=== PATIENT | male | born 1950 | race Caucasian/White ===

== ENCOUNTER 2020-01-26 15:34 | Emergency (ER) | payer OTHER, BC ==
--- NOTE | 2020-01-26 15:39 | PDOC ---
Rapid Medical Evaluation Time Seen by Provider: 01/26/20 15:36 Medical Evaluation: Allergies Allergy/AdvReac Type Severity Reaction Status Date / Time No Known Allergies Allergy Verified 01/26/20 15:36 01/26/20 15:36 69 year old male pmhx HTN HLD presenting with LLQ pain x 1 day. NB in stool Sent by urgent care PE: TTP LLQ Plan Labs UA Imaging differed to ED provider Pt to precede to the ED for further care
[2020-01-26 15:40] VITALS: TEMP 98.1; BMI 26.1
--- OUTSIDE RECORDS SUMMARY | 2020-01-26 16:08 | XMS ---
:1950 Author Organization [facility] Care Team Providers Name Role Phone MD ANDRE Unavailable Unavailable COURT Unavailable Unavailable Re-disclosure Warning The records that you are about to access may contain information from federally- assisted alcohol or drug abuse programs. If such information is present, then the following federally mandated warning applies: This information has been disclosed to you from records protected by federal confidentiality rules (42 CFR part 2). The federal rules prohibit you from making any further disclosure of this information unless further disclosure is expressly permitted by the written consent of the person to whom it pertains or as otherwise permitted by 42 CFR part 2. A general authorization for the release of medical or other information is NOT sufficient for this purpose. The Federal rules restrict any use of the information to criminally investigate or prosecute any alcohol or drug abuse patient.The records that you are about to access may contain highly sensitive health information, the redisclosure of which is protected by Article 27-F of the [facility] Public Health law. If you continue you may haveaccess to information: Regarding HIV / AIDS; Provided by facilities licensed or operated by the [facility] Office of Mental Health; or Provided by the [facility] Office for People With Developmental Disabilities. If such information is present, then the following [facility] mandated warning applies: This information has been disclosed to you from confidential records which are protected by state law. State law prohibits you from making any further disclosure of this information without the specific written consent of the person to whom it pertains, or as otherwise permitted by law. Any unauthorized further disclosure in violation of state law may result in a fine or fpc sentence or both. A general authorization for the release of medical or other information is NOT sufficient authorization for further disclosure. Encounters Encounter Providers Location Date Indications Data Source(s ) Outpatient Attender: MIAH ELAM 01/09/2019 Jeffry Zhongitter: JUDY 09:18:00 AM [facility] EDT - 01/09/2019 12:03:00 PM EDT Patient discharged. Insurance Providers Payer name Policy type Policy ID Covered Covered democrat's Policy P john / Coverage democrat ID relationship to [employer] Inf ormation type vill[employer] O [id number] MEDICARE [id number] Self [id number] SELF PAY 0 Self [id number] [id number] Self [id number]
[2020-01-26] MEDS ORDERED: ACETAMINOPHEN 1000 MG/100 ML VIAL (NON FORMULARY) IVPB ONE (16:19)
--- NOTE | 2020-01-26 16:19 | PDOC ---
History of Present Illness - General Chief Complaint: Pain Stated Complaint: PAIN Time Seen by Provider: 01/26/20 15:36 History Source: Patient - History of Present Illness Timing/Duration: reports: constant Quality: reports: moderate Abdominal Pain Onset Location: reports: LLQ, flank Past History - Medical History Allergies/Adverse Reactions: Allergies Allergy/AdvReac Type Severity Reaction Status Date / Time No Known Allergies Allergy Verified 01/26/20 15:36 Home Medications: Ambulatory Orders Amlodipine Besylate [Norvasc] 10 mg PO DAILY 11/14/12 Aspirin [ASA] 81 mg PO DAILY 11/14/12 Fluticasone Prop 0.05% Nasal [Flonase] 1 - 2 spray NS HS 11/14/12 Losartan Potassium 50 mg PO DAILY 11/14/12 Meloxicam [Mobic] 7.5 mg PO DAILY 11/14/12 Multivitamin [Multivitamins] PO DAILY 11/14/12 Ondansetron HCl [Zofran] 4 mg PO TID PRN #14 tablet 01/26/20 Oxycodone HCl/Acetaminophen [Percocet 5-325 mg Tablet] 1 tab PO Q6H PRN #10 tablet MDD 4 01/26/20 Tamsulosin HCl [Flomax] 0.4 mg PO DAILY #7 cap.er.24h 01/26/20 Anemia: No Asthma: No Cancer: No Cardiac Disorders: No CVA: No COPD: No CHF: No Dementia: No Diabetes: No GI Disorders: No Disorders: No HTN: Yes Hypercholesterolemia: No Liver Disease: No Seizures: No Thyroid Disease: No - Surgical History Abdominal Surgery: No Appendectomy: No Cardiac Surgery: No Cholecystectomy: No Lung Surgery: No Neurologic Surgery: No Orthopedic Surgery: Yes (FX JAW WIRED) - Psycho-Social/Smoking History Smoking History: Never smoked Have you smoked in the past 12 months: Yes Number of Cigarettes Smoked Daily: 0 Cigars Per Day: 1 - Substance Abuse Hx (Audit-C & DAST Scrn) How often the patient has a drink containing alcohol: Monthly or less Number of drinks the patient has on a typical day: 1 or 2 How often the patient has six or more drinks on one occasion: Never Score: In Men: 4 or > Positive; In Women: 3 or > Positive: 1 Screen Result (Pos requires Nsg. Audit-10AR): Negative In the last yr the pt used illegal drug/Rx for NonMed reason: No Score: Yes response is considered Positive: 0 Screen Result (Positive result requires Nsg. DAST-10): Negative Review of Systems - Review of Systems Constitutional: No: Chills, Fever ABD/GI: Yes: Nausea. No: Blood Streaked Bowels, Constipated, Diarrhea, Vomiting, Tarry Stools : Yes: Flank Pain. No: Burning, Dysuria, Discharge, Hematuria *Physical Exam - Vital Signs Last Vital Signs Temp Pulse Resp BP Pulse Ox 98.1 F 66 16 163/88 97 01/26/20 15:36 01/26/20 15:36 01/26/20 15:36 01/26/20 15:36 01/26/20 15:36 - Physical Exam General Appearance: Yes: Appropriately Dressed. No: Apparent Distress HEENT: positive: Normal Voice Neck: positive: Supple Respiratory/Chest: negative: Respiratory Distress Gastrointestinal/Abdominal: positive: Normal Bowel Sounds, Soft. negative: Tender, Distended, Guarding, Rebound Musculoskeletal: negative: CVA Tenderness Integumentary: positive: Dry, Warm Neurologic: positive: Fully Oriented, Alert, Normal Mood/Affect ED Treatment Course - LABORATORY CBC & Chemistry Diagram: 01/26/20 16:00 01/26/20 16:00 Medical Decision Making - Medical Decision Making 01/26/20 16:31 69-year-old male with history of HTN, HLD, uncomplicated renal stones remotely here with L flank pain since yesterday associated with mild nausea, no vomiting, dysuria, hematuria, fever or chills see exam Recurrent renal colic vs diverticulitis, unlikely uti/pyelo Exam unremarkable -pain control -labs -CT 01/26/20 17:28 Per radiology, unable to administer IV contrast 2/2 cr of 1.4, will do dry CT instead 01/26/20 18:41 CT read as 4 mm left UVJ stone with mild to moderate hydro-. Labs unremarkable except for creatinine of 1.4, no old to compare. Patient denies any known history of kidney disease. States pain improving with 2 mg of morphine. IV fluid in progress. Anticipate discharge with appropriate meds, strainer and urology follow-up 01/26/20 19:00 Signed out to HAYLEE Whitten at this time Discharge - Discharge Information Problems reviewed: Yes Clinical Impression/Diagnosis: Renal stone Condition: Improved Disposition: HOME - Additional Discharge Information Prescriptions: Tamsulosin HCl [Flomax] 0.4 mg PO DAILY #7 cap.er.24h Oxycodone HCl/Acetaminophen [Percocet 5-325 mg Tablet] 1 tab PO Q6H PRN #10 tablet MDD 4 PRN Reason: Pain Ondansetron HCl [Zofran] 4 mg PO TID PRN #14 tablet PRN Reason: Nausea - Follow up/Referral Referrals: Donavon Sosa MD [Staff Physician] - Call tomorrow Solo Astorga MD., MD [Staff Physician] - - Patient Discharge Instructions Patient Printed Discharge Instructions: Kidney Stones -- Adult Additional Instructions: You have a 4 mm left-sided kidney stone that is right on top of the bladder. Once stone makes its way into the bladder, symptoms will resolve. strain the urine In the meantime take Flomax, drink fluids and take percocet for pain as needed drink plenty of fluids Return to the ER for any worsening of symptoms, otherwise you were given a strainer in an attempt to collect urine at home. Please follow-up with urology as soon as possible. - Post Discharge Activity Work/Back to School Note: Back to Work
[2020-01-26] MEDS ORDERED: ACETAMINOPHEN INJECTION 100 ML IVPB ONE (16:22)
[2020-01-26 16:33] LABS: BASO % 0.8 % (0-2.0); EOS % 0.6 % (0-4.5); HEMOGLOBIN 16.1 GM/dL (11.7-16.9); LYMPH % 9.5 % (8-40); MCH 33.3 pg (25.7-33.7); MEAN CELL VOLUME 95.1 fl (80-96); NEUT % 81.1 % (42.8-82.8); PLATELET COUNT 260 K/MM3 (134-434); RBC 4.83 M/mm3 (4.00-5.60); RDW 12.6 % (11.9-15.9)
[2020-01-26 17:05] LABS: BLOOD UREA NITROGEN 31.8 mg/dL (7-18); CREATININE 1.4 mg/dL (0.55-1.3); POTASSIUM 4.2 mmol/L (3.5-5.1)
[2020-01-26 17:06] LABS: BILIRUBIN,TOTAL 0.6 mg/dL (0.2-1); CALCIUM 9.7 mg/dL (8.5-10.1); TOT PROT 7.8 g/dl (6.4-8.2)
[2020-01-26] MEDS ORDERED: SODIUM CHLORIDE 1,000 ML IV STA ×2 (17:49→19:46)
[2020-01-26 18:01] LABS: EPI CELLS 2 /uL (0-25.1); HYALINE CASTS 0 /uL (0-3.1); URINE APPEARANCE CLEAR; URINE BACTERIA 11 /uL (0-1359); URINE BILIRUBIN NEGATIVE (NEGATIVE); URINE COLOR YELLOW; URINE GLUCOSE (UA) NEGATIVE (NEGATIVE); URINE KETONE NEGATIVE (NEGATIVE); URINE LEUK ESTERASE NEGATIVE (NEGATIVE); URINE NITRITE NEGATIVE (NEGATIVE); URINE PROTEIN NEGATIVE (NEGATIVE); URINE RBC 47 /uL (0-23.9); URINE UROBILINOGEN 0.2 mg/dL (0.2-1.0); URINE WBC 12 /uL (0-25.8)
[2020-01-26] MEDS ORDERED: morphine CARPU-JECT 4 MG/1 ML DISP.SYRIN IVPUSH ONE (18:14)
[2020-01-26] MEDS ORDERED: MORPHINE SULFATE 2 MG/ML VIAL ONE ×2 (18:19→18:25)
--- NOTE | 2020-01-26 18:47 | PDOC ---
*Physical Exam - Vital Signs Last Vital Signs Temp Pulse Resp BP Pulse Ox 98.1 F 66 16 163/88 97 01/26/20 15:36 01/26/20 15:36 01/26/20 15:36 01/26/20 15:36 01/26/20 15:36 ED Treatment Course - LABORATORY CBC & Chemistry Diagram: 01/26/20 16:00 01/26/20 16:00 - ADDITIONAL ORDERS Additional order review: Laboratory Results 01/26/20 01/26/20 16:00 16:00 Sodium 136 Potassium 4.2 Chloride 104 Carbon Dioxide 26 Anion Gap 6 L BUN 31.8 H Creatinine 1.4 H Est GFR (CKD-EPI)AfAm 58.99 Est GFR (CKD-EPI)NonAf 50.90 Random Glucose 106 Calcium 9.7 Total Bilirubin 0.6 AST 22 ALT 24 Alkaline Phosphatase 46 Total Protein 7.8 Albumin 4.0 Lipase 71 L Urine Color Yellow Urine Appearance Clear Urine pH 6.0 Ur Specific [place] 1.021 Urine Protein Negative Urine Glucose (UA) Negative Urine Ketones Negative Urine Blood Trace Urine Nitrite Negative Urine Bilirubin Negative Urine Urobilinogen 0.2 Ur Leukocyte Esterase Negative Urine WBC (Auto) 12 Urine RBC (Auto) 47 Urine Casts (Auto) 0 U Epithel Cells (Auto) 2 Urine Bacteria (Auto) 11 01/26/20 16:00 RBC 4.83 MCV 95.1 MCHC 35.0 RDW 12.6 MPV 7.0 L Neutrophils % 81.1 Lymphocytes % 9.5 Monocytes % 8.0 Eosinophils % 0.6 Basophils % 0.8 - Medications Given in the ED: ED Medications Discontinued Medications Generic Name Dose Route Start Last Admin Trade Name Roya PRN Reason Stop Dose Admin Acetaminophen 1,000 mg 01/26/20 16:19 01/26/20 16:22 Ofirmev Injection - IVPB 01/26/20 16:20 1,000 mg ONCE ONE Administration Morphine Sulfate 2 mg 01/26/20 18:14 01/26/20 18:26 Morphine Injection - IVPUSH 01/26/20 18:15 2 mg ONCE ONE Administration Medical Decision Making - Medical Decision Making 01/26/20 18:46 Patient seen and evaluated with the nurse practitioner. I agree with the overall evaluation, assessment, and management with the following summary of visit: 69y/o M with flank pain, HD stable without evidence of superimposed infection. labs wnl, ua clear ct with 4mm uvj stone pain control dispo accordingly Discharge - Discharge Information Problems reviewed: Yes Clinical Impression/Diagnosis: Renal stone Condition: Improved - Additional Discharge Information Prescriptions: Tamsulosin HCl [Flomax] 0.4 mg PO DAILY #6 cap.er.24h Acetaminophen [Tylenol -] 1,000 mg PO Q6H #30 tablet Ondansetron HCl [Zofran] 4 mg PO Q8H #12 tablet - Follow up/Referral Referrals: Solo Astorga MD., MD [Staff Physician] - - Patient Discharge Instructions Patient Printed Discharge Instructions: Kidney Stones -- Adult Additional Instructions: You have a 4 mm left-sided kidney stone that is right on top of the bladder. Once stone makes its way into the bladder, symptoms will resolve In the meantime take Flomax, drink fluids and take Tylenol for pain as needed Return to the ER for any worsening of symptoms, otherwise you were given a strainer in an attempt to collect urine at home. Please follow-up with Dr. Astorga of urology - Post Discharge Activity
[2020-01-26] MEDS ORDERED: TAMSULOSIN HCL 0.4 MG CAP PO ONE (19:05)
[2020-01-26] MEDS ORDERED: TAMSULOSIN HCL 0.4 MG CAP ONE (19:20)
[2020-01-26] MEDS ORDERED: KETOROLAC TROMETHAMINE 15 MG/ML VIAL ONE (19:31)
[2020-01-26] MEDS ORDERED: KETOROLAC TROMETHAMINE 15 MG/ML VIAL IVPUSH ONE (19:35)
--- NOTE | 2020-01-26 19:52 | PDOC ---
*Physical Exam - Vital Signs Last Vital Signs Temp Pulse Resp BP Pulse Ox 98.1 F 66 16 163/88 97 01/26/20 15:36 01/26/20 15:36 01/26/20 15:36 01/26/20 15:36 01/26/20 15:36 - Physical Exam General Appearance: Yes: Appropriately Dressed ED Treatment Course - LABORATORY CBC & Chemistry Diagram: 01/26/20 16:00 01/26/20 16:00 - ADDITIONAL ORDERS Additional order review: Laboratory Results 01/26/20 01/26/20 16:00 16:00 Sodium 136 Potassium 4.2 Chloride 104 Carbon Dioxide 26 Anion Gap 6 L BUN 31.8 H Creatinine 1.4 H Est GFR (CKD-EPI)AfAm 58.99 Est GFR (CKD-EPI)NonAf 50.90 Random Glucose 106 Calcium 9.7 Total Bilirubin 0.6 AST 22 ALT 24 Alkaline Phosphatase 46 Total Protein 7.8 Albumin 4.0 Lipase 71 L Urine Color Yellow Urine Appearance Clear Urine pH 6.0 Ur Specific [place] 1.021 Urine Protein Negative Urine Glucose (UA) Negative Urine Ketones Negative Urine Blood Trace Urine Nitrite Negative Urine Bilirubin Negative Urine Urobilinogen 0.2 Ur Leukocyte Esterase Negative Urine WBC (Auto) 12 Urine RBC (Auto) 47 Urine Casts (Auto) 0 U Epithel Cells (Auto) 2 Urine Bacteria (Auto) 11 01/26/20 16:00 RBC 4.83 MCV 95.1 MCHC 35.0 RDW 12.6 MPV 7.0 L Neutrophils % 81.1 Lymphocytes % 9.5 Monocytes % 8.0 Eosinophils % 0.6 Basophils % 0.8 - Medications Given in the ED: ED Medications Discontinued Medications Generic Name Dose Route Start Last Admin Trade Name Freq PRN Reason Stop Dose Admin Acetaminophen 1,000 mg 01/26/20 16:19 01/26/20 16:22 Ofirmev Injection - IVPB 01/26/20 16:20 1,000 mg ONCE ONE Administration Sodium Chloride 1,000 mls @ 1,000 mls/hr 01/26/20 17:49 01/26/20 18:26 Normal Saline - IV 01/26/20 18:48 1,000 mls/hr ASDIR STA Administration Morphine Sulfate 2 mg 01/26/20 18:14 01/26/20 18:26 Morphine Injection - IVPUSH 01/26/20 18:15 2 mg ONCE ONE Administration Tamsulosin HCl 0.4 mg 01/26/20 19:05 01/26/20 19:27 Flomax - PO 01/26/20 19:06 0.4 mg ONCE ONE Administration Medical Decision Making - Medical Decision Making 01/26/20 19:52 Patient reports a lot of pain. Percocet 1 dose and Toradol given. Patient offered admission refused at this time reports that he will follow-up with urology in the outpatient. Discharge - Discharge Information Problems reviewed: Yes Clinical Impression/Diagnosis: Renal stone Condition: Improved Disposition: HOME - Additional Discharge Information Prescriptions: Tamsulosin HCl [Flomax] 0.4 mg PO DAILY #7 cap.er.24h Oxycodone HCl/Acetaminophen [Percocet 5-325 mg Tablet] 1 tab PO Q6H PRN #10 tablet MDD 4 PRN Reason: Pain Ondansetron HCl [Zofran] 4 mg PO TID PRN #14 tablet PRN Reason: Nausea - Follow up/Referral Referrals: Solo Astorga MD., [Staff Physician] - Donavon Sosa MD [Staff Physician] - Call tomorrow - Patient Discharge Instructions Patient Printed Discharge Instructions: Kidney Stones -- Adult Additional Instructions: You have a 4 mm left-sided kidney stone that is right on top of the bladder. Once stone makes its way into the bladder, symptoms will resolve. strain the urine In the meantime take Flomax, drink fluids and take percocet for pain as needed drink plenty of fluids Return to the ER for any worsening of symptoms, otherwise you were given a strainer in an attempt to collect urine at home. Please follow-up with urology as soon as possible. - Post Discharge Activity Work/Back to School Note: Back to Work
[2020-01-26 20:17] VITALS: BP 155/77; PULSE 73
== END 2020-01-26 20:00 | disposition home or self-care (01) ==
LOC: JER 15:34
PROC: 3E033NZ Introduction of Analgesics, Hypnotics, Sedatives into Peripheral Vein, Percutaneous Approach (ICD-10-PCS; principal; 2020-01-26)
PROC: 3E033GC Introduction of Other Therapeutic Substance into Peripheral Vein, Percutaneous Approach (ICD-10-PCS; 2020-01-26)
PROC: 3E0337Z Introduction of Electrolytic and Water Balance Substance into Peripheral Vein, Percutaneous Approach (ICD-10-PCS; 2020-01-26)
DX: N20.0 Calculus of kidney (principal)
CPT/HCPCS: 36415; 74176-TC; 80053; 81003; 83690; 85025; 87086; 99284-25; J0131